=== PATIENT | male | born 1970 | race Caucasian/White ===

== ENCOUNTER 2023-05-02 15:01 | Emergency (ER) | payer MEDICAID ==
[~2023-05-02] VITALS: Ht 172.7 cm; Wt 77.3 kg
[2023-05-02 16:07] VITALS: BP 144/66; PULSE 89; RESP 16; TEMP 97.4; O2SAT 94
--- NOTE | 2023-05-02 16:50 | NUR ---
Pt provided with resources from construction worker.
--- NOTE | 2023-05-02 18:54 | NUR ---
I AGREE WITH THE ASSESSMENT PER Kerline EMANUEL LVN.
== END 2023-05-02 17:13 | disposition home or self-care (01) ==
LOC: ER 15:02 → EDBD 15:02 → ER 17:13
DX: T73.0XXA Starvation, initial encounter (principal); Z59.00 Homelessness unspecified; X58.XXXA Exposure to other specified factors, initial encounter
CPT/HCPCS: 99283